=== PATIENT | female | born 1990 | race Caucasian/White ===

== ENCOUNTER 2020-01-28 19:00 | Inpatient (IN) | payer BC ==
[2020-01-28] MEDS ORDERED: Ondansetron 4 MG/2 ML SDV IVPUSH PRN (19:11)
[2020-01-28] MEDS ORDERED: Sodium Chloride 0.9% 10 ML Syringe FLUSH PRN (19:11)
[2020-01-28] MEDS ORDERED: Nalbuphine 10 MG/ML Syringe IVPUSH PRN (19:11)
[2020-01-28] MEDS ORDERED: Oxytocin/Lactated Ringers 10 UNIT/1,000 ML BAG IV SCH (19:15)
[2020-01-28] MEDS ORDERED: Misoprostol 25 MCG (1/4 of 100 MCG) Tab VAG ONE (20:00)
[2020-01-28] MEDS ORDERED: Misoprostol 200 MCG Tab VAG ONE (20:00)
--- NOTE | 2020-01-28 20:18 | PCM.LDHP ---
<Suni Bhakta - Last Filed: 01/28/20 20:04> L&D History of Present Illness - General Date of Service: 01/28/20 Admit Problem/Dx: Patient Status Order with Admit Dx/Problem 01/28/20 19:12 Patient Status [ADT] Routine Admission Diagnosis/Problem Admission Diagnosis/Problem Source of Information: Patient History Limitations: Reports: No Limitations - History of Present Illness Introduction:: Blanka Gomes is a 29-year-old female at 39 weeks and 6 days gestational age who presents to labor and delivery for elective induction of labor. JENY is 01/29/2020. Present Illness Comments:: Blanka Gomes is a 29-year-old female at 39 weeks and 6 days gestational age who presents to labor and delivery for elective induction of labor. JENY is 01/29/2020. The procedure, risks, and benefits were discussed with the patient and they agreed to proceed. OBGYN History: 29-year-old . JENY 01/29/2020, LMP 04/18/2019, which was confirmed by ultrasound performed on 06/24/2019. She was not on control at the time of conception. Menarche at age 14, cycles are every 30 days and are regular. History of abnormal pap with colposcopy in 2006; follow-up was appropriate and she has had normal paps since. History of chlamydia infection, which was treated appropriately; her chlamydia screening during the first trimester was negative. Past OB History: None Course: First visit on 07/27/2019 at 13 weeks and 3 days gestational age. She was seen on a regular basis throughout . She started her at 172 pounds and most recently weighed 188 pounds for a total weight gain during of 16 pounds. Vital signs remained stable throughout course and fundal heights were appropriate. TDAP was given on 11/07/2019. She plans to have an epidural. She plans to breastfeed. Group B strep negative. First Trimester Labs (07/27/2019): Blood Type: O positive Antibody screen: Negative Hemoglobin: 12.3 g/dl Hematocrit: 35.4% Platelets: 181 10*3/uL Rubella immune RPR nonreactive Hepatitis B surface antigen: negative HIV: negative Chlamydia and gonorrhea: negative Second Trimester Labs (11/07/2019): Hemoglobin: 11.4 g/dl Hematocrit: 35.3% Platelets: 171 10*3/uL Diabetes screen: normal Past Medical History - Past Health History Medical/Surgical History: Denies Medical/Surgical History Social & Family History - Family History Family Medical History: Noncontributory - Tobacco Use Smoking Status *Q: Never Smoker - Alcohol Use Alcohol Use History: No - Recreational Drug Use Recreational Drug Use: No H&P Review of Systems - Review of Systems: Review Of Systems: See Below General: Reports: No Symptoms HEENT: Reports: No Symptoms Pulmonary: Reports: No Symptoms Cardiovascular: Reports: No Symptoms Gastrointestinal: Reports: No Symptoms Genitourinary: Reports: No Symptoms Musculoskeletal: Reports: No Symptoms Skin: Reports: No Symptoms Psychiatric: Reports: No Symptoms Neurological: Reports: No Symptoms Hematologic/Lymphatic: Reports: No Symptoms Immunologic: Reports: No Symptoms L&D Exam - Exam Exam: See Below - Exam General: Alert, Oriented HEENT: Conjunctiva Clear, EOMI, Hearing Intact, Mucosa Moist & [place], Normal Nasal Septum, Posterior Pharynx Clear, Pupils Equal, Pupils Reactive Neck: Supple, Trachea Midline Lungs: Clear to Auscultation, Normal Respiratory Effort Cardiovascular: Regular Rate, Regular Rhythm, Normal S1, Normal S2 GI/Abdominal Exam: Normal Bowel Sounds Rectal Exam: Deferred Genitourinary: Normal external exam Back Exam: Normal Inspection, Full Range of Motion, Other (No CVA tenderness) Extremities: Normal Inspection, Normal Range of Motion, Non-Tender, No Pedal Edema, Normal Capillary Refill Skin: Warm, Dry, Intact Neurological: Cranial Nerves Intact, Reflexes Equal Bilateral DTR: 2+: Bicep (L), Bicep (R), Patella (L), Patella (R) Psychiatric: Alert, Normal Affect, Normal Mood - Patient Data Lab Results Last 24 hrs: Laboratory Results - last 24 hr 01/28/20 Range/Units 19:25 WBC 9.33 (3.98-10.04) K/mm3 RBC 3.93 L (3.98-5.22) M/mm3 Hgb 12.5 (11.2-15.7) gm/dl Hct 37.4 (34.1-44.9) % MCV 95.2 H (79.4-94.8) fl MCH 31.8 (25.6-32.2) pg MCHC 33.4 (32.2-35.5) g/dl RDW Std Deviation 47.8 H (36.4-46.3) fL Plt Count 148 L (182-369) K/mm3 MPV 11.9 (9.4-12.3) fl Neut % (Auto) 71.5 H (34.0-71.1) % Lymph % (Auto) 20.8 (19.3-51.7) % [place] % (Auto) 6.6 (4.7-12.5) % Eos % (Auto) 0.8 (0.7-5.8) Baso % (Auto) 0.1 (0.1-1.2) % Neut # (Auto) 6.67 H (1.56-6.13) K/mm3 Lymph # (Auto) 1.94 (1.18-3.74) K/mm3 [place] # (Auto) 0.62 H (0.24-0.36) K/mm3 Eos # (Auto) 0.07 (0.04-0.36) K/mm3 Baso # (Auto) 0.01 (0.01-0.08) K/mm3 Result Diagrams: 01/28/20 19:25 Orders Last 24hrs: Active Orders 24 hr Category Date Time Status Patient Status [ADT] Routine ADT 01/28/20 19:12 Active Activity as Tolerated [RC] PFP Care 01/28/20 19:11 Active Communication Order [RC] ASDIRECTED Care 01/28/20 19:11 Active Heart Tones [RC] ASDIRECTED Care 01/28/20 19:12 Active Non Stress Test [RC] PER UNIT ROUTINE Care 01/28/20 19:11 Active Notify Provider [RC] PFP Care 01/28/20 19:11 Active Notify Provider [RC] PRN Care 01/28/20 19:11 Active Peripheral IV Care [RC] . DIRECTED Care 01/28/20 19:12 Active Vital Signs [RC] PER UNIT ROUTINE Care 01/28/20 19:11 Active Regular Diet [DIET] Diet 01/28/20 Breakfast Active CORONAVIRUS COVID-19 PCR PHL Stat Lab 01/28/20 19:15 Ordered RAPID PLASMA REAGIN,RPR [CHEM] Routine Lab 01/28/20 19:25 Received TYPE AND SCREEN [BBK] Stat Lab 01/28/20 19:25 Received Lactated Ringers [Ringers, Lactated] 1,000 ml Med 01/28/20 19:15 Active IV ASDIRECTED Nalbuphine [Nubain] Med 01/28/20 19:11 Active 10 mg IVPUSH Q2H PRN Ondansetron [Zofran] Med 01/28/20 19:11 Active 4 mg IVPUSH Q4H PRN Oxytocin/Lactated Ringers [Pitocin in LR 10 Units/1,000 Med 01/28/20 19:15 Active ML] 10 unit in 1,000 ml IV .CONTINUOUS Oxytocin/Lactated Ringers [Pitocin in LR 10 Units/1,000 Med 01/28/20 19:15 Active ML] 10 unit in 1,000 ml IV TITRATE Sodium Chloride 0.9% [Saline Flush] Med 01/28/20 19:11 Active 10 ml FLUSH ASDIRECTED PRN Electronic Heart Tones Ext w TOCO [WOMSER] Oth 01/28/20 19:11 Ordered Routine Electronic Heart Tones Internal [WOMSER] Per Unit Ot 01/28/20 19:11 Ordered Routine Peripheral IV Insertion Adult [OM.PC] Routine Oth 01/28/20 19:11 Ordered Resuscitation Status Routine Resus Stat 01/28/20 19:11 Ordered Medication Orders Oxytocin/Lactated Ringer's (Pitocin In Lr 10 Units/1,000 Ml) 10 unit in 1,000 mls @ 12 mls/hr IV TITRATE RAN; Protocol Oxytocin/Lactated Ringer's (Pitocin In Lr 10 Units/1,000 Ml) 10 unit in 1,000 mls @ 500 mls/hr IV .CONTINUOUS RAN Lactated Ringer's (Ringers, Lactated) 1,000 mls @ 100 mls/hr IV ASDIRECTED RAN Nalbuphine HCl (Nubain) 10 mg IVPUSH Q2H PRN PRN Reason: Pain Ondansetron HCl (Zofran) 4 mg IVPUSH Q4H PRN PRN Reason: Nausea/Vomiting Sodium Chloride (Saline Flush) 10 ml FLUSH ASDIRECTED PRN PRN Reason: Keep Vein Open Assessment/Plan Comment:: Blanka Gomes is a 29-year-old female at 39 weeks and 6 days gestational age who presents to labor and delivery for elective induction of labor. JENY is 01/29/2020. We will begin with Cytotech to be inserted vaginally throughout the night. We will then plan to start Pitocin tomorrow morning and artificially rupture membranes if indicated. She and her are agreeable to this plan. She plans to have an epidural. She plans to breastfeed. Routine labor care. [place] [place] 01/28/20202021 HRS <Adria Grijalva - Last Filed: 01/28/20 23:12> L&D History of Present Illness - General Admit Problem/Dx: Patient Status Order with Admit Dx/Problem 01/28/20 19:12 Patient Status [ADT] Routine Admission Diagnosis/Problem Admission Diagnosis/Problem L&D Exam - Vital Signs Vital Signs: Last Vital Signs Temp 98.0 F 01/28/20 19:11 Pulse 88 01/28/20 19:11 Resp 16 01/28/20 19:11 BP 131/89 01/28/20 19:11 Pulse Ox 100 01/28/20 19:11 - Patient Data Lab Results Last 24 hrs: Laboratory Results - last 24 hr 01/28/20 01/28/20 01/28/20 Range/Units 19:25 19:25 19:50 WBC 9.33 (3.98-10.04) K/mm3 RBC 3.93 L (3.98-5.22) M/mm3 Hgb 12.5 (11.2-15.7) gm/dl Hct 37.4 (34.1-44.9) % MCV 95.2 H (79.4-94.8) fl MCH 31.8 (25.6-32.2) pg MCHC 33.4 (32.2-35.5) g/dl RDW Std Deviation 47.8 H (36.4-46.3) fL Plt Count 148 L (182-369) K/mm3 MPV 11.9 (9.4-12.3) fl Neut % (Auto) 71.5 H (34.0-71.1) % Lymph % (Auto) 20.8 (19.3-51.7) % [place] % (Auto) 6.6 (4.7-12.5) % Eos % (Auto) 0.8 (0.7-5.8) Baso % (Auto) 0.1 (0.1-1.2) % Neut # (Auto) 6.67 H (1.56-6.13) K/mm3 Lymph # (Auto) 1.94 (1.18-3.74) K/mm3 [place] # (Auto) 0.62 H (0.24-0.36) K/mm3 Eos # (Auto) 0.07 (0.04-0.36) K/mm3 Baso # (Auto) 0.01 (0.01-0.08) K/mm3 RPR Non-reactive (NONREACTIVE) COVID-19 ([facility]) Negative (NEGATIVE) Result Diagrams: 01/28/20 19:25 - Problem List (1) 39 weeks gestation of SNOMED Code(s): 25597524 ICD Code: Z3A.39 - 39 WEEKS GESTATION OF Status: Acute Current Visit: Yes Problem List Initiated/Reviewed/Updated: No Orders Last 24hrs: Active Orders 24 hr Category Date Time Status Patient Status [ADT] Routine ADT 01/28/20 19:12 Active Activity as Tolerated [RC] PFP Care 01/28/20 19:11 Active Communication Order [RC] ASDIRECTED Care 01/28/20 19:11 Active Communication Order [RC] ASDIRECTED Care 01/28/20 20:33 Active Cooling Warming Measures [RC] ASDIRECTED Care 01/28/20 20:33 Active Heart Tones [RC] ASDIRECTED Care 01/28/20 19:12 Active Non Stress Test [RC] PER UNIT ROUTINE Care 01/28/20 19:11 Active Notify Provider [RC] ASDIRECTED Care 01/28/20 20:33 Active Notify Provider [RC] ASDIRECTED Care 01/28/20 20:33 Active Notify Provider [RC] PFP Care 01/28/20 19:11 Active Notify Provider [RC] PRN Care 01/28/20 19:11 Active Oxygen Therapy [RC] ASDIRECTED Care 01/28/20 20:33 Active Peripheral IV Care [RC] . DIRECTED Care 01/28/20 19:12 Active Pulse Oximetry [RC] ASDIRECTED Care 01/28/20 20:33 Active Vital Signs [RC] PER UNIT ROUTINE Care 01/28/20 19:11 Active Regular Diet [DIET] Diet 01/28/20 Breakfast Active TYPE AND SCREEN [BBK] Stat Lab 01/28/20 19:25 Received Bupivacaine/fentaNYL/NS [fentaNYL/Bupivacaine/NS 2 MCG- Med 01/28/20 20:33 Active 0.125% 100 ML] 100 ml EPIDUR ASDIRECTED PRN Lactated Ringers [Ringers, Lactated] 1,000 ml Med 01/28/20 19:15 Active IV ASDIRECTED Nalbuphine [Nubain] Med 01/28/20 19:11 Active 10 mg IVPUSH Q2H PRN Ondansetron [Zofran] Med 01/28/20 19:11 Active 4 mg IVPUSH Q4H PRN Oxytocin/Lactated Ringers [Pitocin in LR 10 Units/1,000 Med 01/28/20 19:15 Active ML] 10 unit in 1,000 ml IV .CONTINUOUS Oxytocin/Lactated Ringers [Pitocin in LR 10 Units/1,000 Med 01/28/20 19:15 Active ML] 10 unit in 1,000 ml IV TITRATE Sodium Chloride 0.9% [Saline Flush] Med 01/28/20 19:11 Active 10 ml FLUSH ASDIRECTED PRN diphenhydrAMINE [Benadryl] Med 01/28/20 20:33 Active 25 mg IVPUSH Q6H PRN ePHEDrine [ePHEDrine sulfate] Med 01/28/20 20:33 Active 5 mg IVPUSH ASDIRECTED PRN fentaNYL [Sublimaze] Med 01/28/20 20:33 Active 100 mcg EPIDUR Q3H PRN Electronic Heart Tones Ext w TOCO [WOMSER] Oth 01/28/20 19:11 Ordered Routine Electronic Heart Tones Internal [WOMSER] Per Unit Oth 01/28/20 19:11 Ordered Routine Peripheral IV Insertion Adult [OM.PC] Routine Oth 01/28/20 19:11 Ordered Resuscitation Status Routine Resus Stat 01/28/20 19:11 Ordered Medication Orders Diphenhydramine HCl (Benadryl) 25 mg IVPUSH Q6H PRN PRN Reason: pruritis Ephedrine Sulfate (Ephedrine Sulfate) 5 mg IVPUSH ASDIRECTED PRN PRN Reason: Hypotension Fentanyl (Sublimaze) 100 mcg EPIDUR Q3H PRN PRN Reason: Pain Fentanyl/Bupivacaine HCl (Fentanyl/Bupivacaine/Ns 2 Mcg-0.125% 100 Ml) 100 ml EPIDUR ASDIRECTED PRN PRN Reason: Pain Oxytocin/Lactated Ringer's (Pitocin In Lr 10 Units/1,000 Ml) 10 unit in 1,000 mls @ 12 mls/hr IV TITRATE RAN; Protocol Oxytocin/Lactated Ringer's (Pitocin In Lr 10 Units/1,000 Ml) 10 unit in 1,000 mls @ 500 mls/hr IV .CONTINUOUS RAN Lactated Ringer's (Ringers, Lactated) 1,000 mls @ 100 mls/hr IV ASDIRECTED RAN Nalbuphine HCl (Nubain) 10 mg IVPUSH Q2H PRN PRN Reason: Pain Ondansetron HCl (Zofran) 4 mg IVPUSH Q4H PRN PRN Reason: Nausea/Vomiting Sodium Chloride (Saline Flush) 10 ml FLUSH ASDIRECTED PRN PRN Reason: Keep Vein Open Assessment/Plan Comment:: Patient seen and examined by me and discussed with student.
[2020-01-28] MEDS ORDERED: diphenhydrAMINE 50 MG/ML SDV IVPUSH PRN (20:33)
[2020-01-28] MEDS ORDERED: Bupivacaine/fentaNYL/NS 100 ML Bag EPIDUR PRN (20:33)
[2020-01-28] MEDS ORDERED: fentaNYL 100 MCG/2 ML SDV EPIDUR PRN (20:33)
[2020-01-28] MEDS ORDERED: ePHEDrine 50 MG/ML SDV IVPUSH PRN (20:33)
--- NOTE | 2020-01-28 23:42 | PCM.SN.2 ---
- Free Text/Narrative Note: Doing some contractions after the first Cytotec placed at approximately 2030 hrs. Repeat Cytotec at approximately 00 30 hours and again at 0430 hrs. and then at 0800 hrs. begin Pitocin augmentation.
[2020-01-29] MEDS ORDERED: Bupivacaine 0.25% 10 ML SDV ONE
[2020-01-29] MEDS ORDERED: ePHEDrine 50 MG/ML SDV ONE
[2020-01-29] MEDS ORDERED: Misoprostol 25 MCG (1/4 of 100 MCG) Tab VAG SCH ×2 (04:00)
[2020-01-29] MEDS: Lactated Ringers 1,000 ML IV SCH ×4 (04:13→14:59)
[2020-01-29] MEDS: Oxytocin/Lactated Ringers 10 UNIT/1,000 ML BAG IV SCH ×3 (04:14→18:59)
--- NOTE | 2020-01-29 10:17 | PCM.SN.2 ---
- Free Text/Narrative Note: Amniotomy at 1015. Clear fluid. Cervix 2 cm, 80%, soft, posterior, vertex 0 station.Cat I FHR.
--- NOTE | 2020-01-29 12:00 | PCM.PREANE ---
Preanesthetic Assessment - Procedure Proposed Procedure: Epidural - Anesthesia/Transfusion/Family Hx Anesthesia History: Prior Anesthesia Without Reaction Family History of Anesthesia Reaction: No Transfusion History: No Prior Transfusion(s) - Review of Systems General: Fatigue Pulmonary: No Symptoms Cardiovascular: No Symptoms Gastrointestinal: Abdominal Pain (labor) Neurological: No Symptoms Other: Reports: None - Physical Assessment Vital Signs: Last Vital Signs Temp 36.7 C 01/28/20 19:11 Pulse 88 01/28/20 19:11 Resp 16 01/28/20 19:11 BP 131/89 01/28/20 19:11 Pulse Ox 100 01/28/20 19:11 Height: 1.65 m Weight: 85.275 kg ASA Class: 2 Mental Status: Alert & Oriented x3 Airway Class: Mallampati = 1 Dentition: Reports: Normal Dentition Thyro-Mental Finger Breadths: 3 Mouth Opening Finger Breadths: 3 ROM/Head Extension: Full Lungs: Clear to Auscultation, Normal Respiratory Effort Cardiovascular: Regular Rate, Regular Rhythm - Lab Values: Laboratory Last Values WBC 9.33 K/mm3 (3.98-10.04) 01/28/20 19:25 RBC 3.93 M/mm3 (3.98-5.22) L 01/28/20 19:25 Hgb 12.5 gm/dl (11.2-15.7) 01/28/20 19:25 Hct 37.4 % (34.1-44.9) 01/28/20 19:25 MCV 95.2 fl (79.4-94.8) H 01/28/20 19:25 MCH 31.8 pg (25.6-32.2) 01/28/20 19:25 MCHC 33.4 g/dl (32.2-35.5) 01/28/20 19:25 RDW Std Deviation 47.8 fL (36.4-46.3) H 01/28/20 19:25 Plt Count 148 K/mm3 (182-369) L 01/28/20 19:25 MPV 11.9 fl (9.4-12.3) 01/28/20 19:25 Neut % (Auto) 71.5 % (34.0-71.1) H 01/28/20 19:25 Lymph % (Auto) 20.8 % (19.3-51.7) 01/28/20 19:25 [place] % (Auto) 6.6 % (4.7-12.5) 01/28/20 19:25 Eos % (Auto) 0.8 (0.7-5.8) 01/28/20 19:25 Baso % (Auto) 0.1 % (0.1-1.2) 01/28/20 19:25 Neut # (Auto) 6.67 K/mm3 (1.56-6.13) H 01/28/20 19:25 Lymph # (Auto) 1.94 K/mm3 (1.18-3.74) 01/28/20 19:25 [place] # (Auto) 0.62 K/mm3 (0.24-0.36) H 01/28/20 19:25 Eos # (Auto) 0.07 K/mm3 (0.04-0.36) 01/28/20 19:25 Baso # (Auto) 0.01 K/mm3 (0.01-0.08) 01/28/20 19:25 RPR Non-reactive (NONREACTIVE) 01/28/20 19:25 COVID-19 ([facility]) Negative (NEGATIVE) 01/28/20 19:50 - Allergies Allergies/Adverse Reactions: Allergies Allergy/AdvReac Type Severity Reaction Status Date / Time No Known Allergies Allergy Verified 01/28/20 21:03 - Anesthesia Plan Pre-Op Medication Ordered: None - Acknowledgements Anesthesia Type Planned: Epidural Pt an Appropriate Candidate for the Planned Anesthesia: Yes Alternatives and Risks of Anesthesia Discussed w Pt/Guardian: Yes Pt/Guardian Understands and Agrees with Anesthesia Plan: Yes PreAnesthesia Questionnaire - Past Health History Medical/Surgical History: Denies Medical/Surgical History Gastrointestinal History: Reports: GERD [employer]IC [employer]ORDINATOR History: Reports: - Past Surgical History HEENT Surgical History: Reports: Oral Surgery - SUBSTANCE USE Smoking Status *Q: Never Smoker Second Hand Smoke Exposure: No Recreational Drug Use History: No - HOME MEDS Home Medications: Home Meds Omeprazole Magnesium [Prilosec Otc] 1 tab PO DAILY PRN 01/28/20 [History] Prenat 115/Iron Fum/Folic/Dss [ 19 Tablet] 1 tab PO DAILY 01/28/20 [History] - CURRENT (IN HOUSE) MEDS Current Meds: Current Medications Diphenhydramine HCl (Benadryl) 25 mg IVPUSH Q6H PRN PRN Reason: pruritis Ephedrine Sulfate (Ephedrine Sulfate) 5 mg IVPUSH ASDIRECTED PRN PRN Reason: Hypotension Fentanyl (Sublimaze) 100 mcg EPIDUR Q3H PRN PRN Reason: Pain Last Admin: 01/29/20 11:38 Dose: 100 mcg Documented by: Fentanyl/Bupivacaine HCl (Fentanyl/Bupivacaine/Ns 2 Mcg-0.125% 100 Ml) 100 ml EPIDUR ASDIRECTED PRN PRN Reason: Pain Last Admin: 01/29/20 11:40 Dose: 100 ml Documented by: Oxytocin/Lactated Ringer's (Pitocin In Lr 10 Units/1,000 Ml) 10 unit in 1,000 mls @ 12 mls/hr IV TITRATE RAN; Protocol Last Titration: 01/29/20 08:00 Dose: 16 munits/min, 96 mls/hr Documented by: Oxytocin/Lactated Ringer's (Pitocin In Lr 10 Units/1,000 Ml) 10 unit in 1,000 mls @ 500 mls/hr IV .CONTINUOUS RAN Lactated Ringer's (Ringers, Lactated) 1,000 mls @ 100 mls/hr IV ASDIRECTED RAN Last Admin: 01/29/20 11:41 Dose: 999 mls/hr Documented by: Nalbuphine HCl (Nubain) 10 mg IVPUSH Q2H PRN PRN Reason: Pain Last Admin: 01/29/20 10:19 Dose: 10 mg Documented by: Ondansetron HCl (Zofran) 4 mg IVPUSH Q4H PRN PRN Reason: Nausea/Vomiting Sodium Chloride (Saline Flush) 10 ml FLUSH ASDIRECTED PRN PRN Reason: Keep Vein Open Discontinued Medications Misoprostol (Cytotec) 50 mcg VAG ONETIME ONE Stop: 01/28/20 20:01 Misoprostol (Cytotec) 50 mcg VAG ONETIME ONE Stop: 01/28/20 20:01 Last Admin: 01/28/20 19:54 Dose: 50 mcg Documented by: Misoprostol (Cytotec) 50 mcg VAG Q4HR RAN Stop: 01/29/20 01:01 Last Admin: 01/29/20 00:10 Dose: 50 mcg Documented by: Misoprostol (Cytotec) 50 mcg VAG Q4H RAN Stop: 01/29/20 04:01 Last Admin: 01/29/20 04:18 Dose: Not Given Documented by:
[2020-01-29] MEDS ORDERED: Acetaminophen 325 MG Tab PO ONE (21:46)
[2020-01-29] MEDS ORDERED: Lidocaine 1% 50 ML MDV ONE (22:59)
--- NOTE | 2020-01-29 23:26 | PCM.DEL ---
L & D Note - General Info Date of Service: 01/29/20 Mother's Due Date: 01/30/20 - Delivery Note Labor: Augmented by ARM, Augmented by Oxytocin Cervical Ripening Method: Misoprostil Delivery Outcome: Livebirth (Liveborn 01/29/2020 254 hours vacuum application x1 for 15 seconds in the green weight 3610 g / 7 pounds 15.3 ounces 7/8 no nuchal cord second-degree midline laceration SHANKAR) Delivery Method: Spontaneous Vaginal Delivery-Single Infant Delivery Mode: Vacuum Extraction Presentation: Right Occiput Anterior (SHANKAR) Nuchal Cord: None Prep: Povidone-Iodine (Betadine Anesthesia Type: Epidural Amniotic Fluid Description: Clear Episiotomy Type: None Laceration: 2nd Degree Suture type: Other (Monocryl) Suture size: 3-0 (2) Placenta: Intact, Spontaneous (To 58-hour examined intact discarded bi-valve placenta) Cord: 3 Vessels Estimated Blood Loss: 250 Resuscitation Needed: No [place]: Suctioned, Bulb Syringe, Stimulated, Warmed, Lolo Used, Warmer Used Provider: Adria Grijalva Score 1 min: 7 Score 5 min: 8 Induction Criteria - Mann Score Mann Score Dilation: 1-2 cm Mann Score Effacement: 0-30% Mann Score Infant's Station: -1 ,0 Mann Score Consistency: Soft Mann Score Cervix Position: Posterior Mann Score Total: 5 Mann Score Presenting Part: Reports: Cephalic - Induction Gestational Age >/= 39 wks: Yes Estimated Pelvis: Reports: Adequate Reassuring Monitoring Strip: Yes Absence of Tachy Systole: Yes - Augmentation Estimated Pelvis: Reports: Adequate Weight Estimated:: Reports: AGA Reassuring Monitoring Strip: Yes Absence of Tachy Systole: Yes Vacuum Extractor Progress Note - Alternative Labor Strategies Considered Alternative Labor Strategies Considered:: Reports: No Strategies Considered:: Reports: Contraction Intensity Adequate, Position Changes Used to Facilitate Rotation & Descent, Empty Bladder, Rest Indications Considered:: Reports: Yes Indications:: Reports: Shortening of 2nd Stage for Maternal Benefit Time Out:: Reports: Yes - Patient Prepared Patient Prepared:: Reports: Yes Informed Consent:: Reports: Verbal Risks: Reports: Yes Risks Include:: Reports: Laceration, Shoulder Dystocia, Maternal Injury, Other Anesthesia/Analgesia Adequate:: Reports: Yes - Probability of Success High Probability of Success:: Reports: Yes Weight Estimated:: Reports: AGA Patient Diabetic:: Reports: No Pelvis Adequate:: Reports: Yes Asynclitic:: Reports: No - Application Time Maximum Application Time & Number of Pop-Offs Predetermined:: Reports: Yes Maximum Pressure Maintained in Green Zone (cm Hg):: 600 Total Application Time (min): *max=20min: 1 (15 sec) Number of Times Cup Disengaged:: 0 Type of Vacuum Used:: Reports: Cup: Mushroom type Vacuum Extraction: Successful (1 Pull for 15 seconds in the green.) - General Info Date of Service: 01/29/20 Functional Status: Reports: Pain Controlled - Review of Systems General: Reports: No Symptoms HEENT: Reports: No Symptoms Pulmonary: Reports: No Symptoms Cardiovascular: Reports: No Symptoms Gastrointestinal: Reports: No Symptoms Genitourinary: Reports: No Symptoms Musculoskeletal: Reports: No Symptoms Skin: Reports: No Symptoms Neurological: Reports: No Symptoms Psychiatric: Reports: No Symptoms - Patient Data Vitals - Most Recent: Last Vital Signs Temp 98.0 F 01/28/20 19:11 Pulse 88 01/28/20 19:11 Resp 16 01/28/20 19:11 BP 131/89 01/28/20 19:11 Pulse Ox 100 01/28/20 19:11 Weight - Most Recent: 188 lb I&O - Last 24 Hours: Intake & Output 01/29/20 01/29/20 01/30/20 14:59 22:59 06:59 Intake Total 120 Balance 120 Lab Results Last 24 Hours: Laboratory Results - last 24 hr 01/28/20 Range/Units 19:25 Blood Type O POSITIVE Gel Antibody Screen Negative Med Orders - Current: Current Medications Diphenhydramine HCl (Benadryl) 25 mg IVPUSH Q6H PRN PRN Reason: pruritis Ephedrine Sulfate (Ephedrine Sulfate) 5 mg IVPUSH ASDIRECTED PRN PRN Reason: Hypotension Fentanyl (Sublimaze) 100 mcg EPIDUR Q3H PRN PRN Reason: Pain Last Admin: 01/29/20 11:38 Dose: 100 mcg Documented by: Fentanyl/Bupivacaine HCl (Fentanyl/Bupivacaine/Ns 2 Mcg-0.125% 100 Ml) 100 ml E PIDUR ASDIRECTED PRN PRN Reason: Pain Last Admin: 01/29/20 11:40 Dose: 100 ml Documented by: Oxytocin/Lactated Ringer's (Pitocin In Lr 10 Units/1,000 Ml) 10 unit in 1,000 mls @ 12 mls/hr IV TITRATE RAN; Protocol Last Admin: 01/29/20 18:59 Dose: 10 munits/min, 60 mls/hr Documented by: Oxytocin/Lactated Ringer's (Pitocin In Lr 10 Units/1,000 Ml) 10 unit in 1,000 mls @ 500 mls/hr IV .CONTINUOUS RAN Lactated Ringer's (Ringers, Lactated) 1,000 mls @ 100 mls/hr IV ASDIRECTED RAN Last Admin: 01/29/20 14:59 Dose: 100 mls/hr Documented by: Nalbuphine HCl (Nubain) 10 mg IVPUSH Q2H PRN PRN Reason: Pain Last Admin: 01/29/20 10:19 Dose: 10 mg Documented by: Ondansetron HCl (Zofran) 4 mg IVPUSH Q4H PRN PRN Reason: Nausea/Vomiting Sodium Chloride (Saline Flush) 10 ml FLUSH ASDIRECTED PRN PRN Reason: Keep Vein Open Discontinued Medications Acetaminophen (Tylenol) 975 mg PO NOW ONE Stop: 01/29/20 21:47 Lidocaine HCl (Xylocaine 1%) Confirm Administered Dose 50 ml .ROUTE .STK-MED ONE Stop: 01/29/20 23:00 Misoprostol (Cytotec) 50 mcg VAG ONETIME ONE Stop: 01/28/20 20:01 Misoprostol (Cytotec) 50 mcg VAG ONETIME ONE Stop: 01/28/20 20:01 Last Admin: 01/28/20 19:54 Dose: 50 mcg Documented by: Misoprostol (Cytotec) 50 mcg VAG Q4HR RAN Stop: 01/29/20 01:01 Last Admin: 01/29/20 00:10 Dose: 50 mcg Documented by: Misoprostol (Cytotec) 50 mcg VAG Q4H RAN Stop: 01/29/20 04:01 Last Admin: 01/29/20 04:18 Dose: Not Given Documented by: - Exam General: Alert, Oriented HEENT: Pupils Equal, Mucous Membr. Moist/[place] Neck: Supple Lungs: Clear to Auscultation, Normal Respiratory Effort Cardiovascular: Regular Rate, Regular Rhythm GI/Abdominal Exam: Normal Bowel Sounds (Female) Exam: Normal External Exam Extremities: Normal Inspection, Non-Tender, No Pedal Edema, Normal Capillary Refill Skin: Warm, Dry, Intact Psy/Mental Status: Alert, Normal Affect, Normal Mood - Problem List & Annotations (1) 39 weeks gestation of SNOMED Code(s): 46268380 Code(s): Z3A.39 - 39 WEEKS GESTATION OF Status: Acute Current Visit: Yes (2) Normal delivery at term SNOMED Code(s): 81386652 Code(s): O80 - ENCOUNTER FOR FULL-TERM UNCOMPLICATED DELIVERY Status: Acute Current Visit: Yes (3) Vacuum extraction, delivered, current hospitalization SNOMED Code(s): 271623033 Code(s): O66.5 - ATTEMPTED APPLICATION OF VACUUM EXTRACTOR AND FORCEPS Status: Acute Current Visit: Yes (4) Second degree laceration of perineum, delivered, current hospitalization SNOMED Code(s): 288068068, 216968891 Code(s): O70.1 - SECOND DEGREE PERINEAL LACERATION DURING DELIVERY Status: Acute Current Visit: Yes - Problem List Review Problem List Initiated/Reviewed/Updated: No - My Orders Last 24 Hours: My Active Orders 01/29/20 13:22 Urinary Catheter Assessment [RC] ASDIRECTED 01/29/20 13:30 Love Catheter Insertion [Insert Urinary Catheter] [OM.PC] Q24H - Plan Plan:: Patient seen and examined by me and discussed with student.
[2020-01-29] MEDS: Ibuprofen 600 MG Tab PO PRN (23:30)
[2020-01-29] MEDS ORDERED: Witch Hazel Medicated Pads 40/Jar TOP PRN (23:53)
[2020-01-29] MEDS ORDERED: Docusate Sodium 100 MG Cap PO PRN (23:53)
[2020-01-30] MEDS: Acetaminophen 325 MG Tab PO PRN ×2 (02:10→06:11)
[2020-01-30] MEDS: Ibuprofen 600 MG Tab PO PRN ×3 (04:05→21:51)
--- NOTE | 2020-01-30 10:11 | PCM.SN.2 ---
- Free Text/Narrative Note: day 1 Afebrile, chest clear no abnormal sounds. Cardiovascular examination normal. Uterus involuting normally. No heavy vaginal bleeding. No leg cramping. Probably home tomorrow.
--- NOTE | 2020-01-31 07:36 | PCM.DCSUM1 ---
Discharge Summary - Hospital Course Free Text/Narrative:: [facility] L/D Delivery Note Patient Name: SHAHEED SALAZAR Date of : 88 Patient Status: Inpatient Attending Provider: Adria Grijalva Date: 01/29/20 23:21 Initialization Date: 01/29/20 23:21 L & D Note - General Info Date of Service: 01/29/20 Mother's Due Date: 01/30/20 - Delivery Note Labor: Augmented by ARM, Augmented by Oxytocin Cervical Ripening Method: Misoprostil Delivery Outcome: Livebirth (Liveborn 01/29/2020 254 hours vacuum application x1 for 15 seconds in the green weight 3610 g / 7 pounds 15.3 ounces 7/8 no nuchal cord second-degree midline laceration SHANKAR) Delivery Method: Spontaneous Vaginal Delivery-Single Infant Delivery Mode: Vacuum Extraction Presentation: Right Occiput Anterior (SHANKAR) Nuchal Cord: None Prep: Povidone-Iodine (Betadine Anesthesia Type: Epidural Amniotic Fluid Description: Clear Episiotomy Type: None Laceration: 2nd Degree Suture type: Other (Monocryl) Suture size: 3-0 (2) Placenta: Intact, Spontaneous (To 58-hour examined intact discarded bi-valve placenta) Cord: 3 Vessels Estimated Blood Loss: 250 Resuscitation Needed: No : Suctioned, Bulb Syringe, Stimulated, Warmed, Applegate Used, Warmer Used Provider: Adria Grijalva Score 1 min: 7 Score 5 min: 8 Induction Criteria - Mann Score Mann Score Dilation: 1-2 cm Mann Score Effacement: 0-30% Mann Score 's Station: -1 ,0 Mann Score Consistency: Soft Mann Score Cervix Position: Posterior Mann Score Total: 5 Mann Score Presenting Part: Reports: Cephalic - Induction Gestational Age >/= 39 wks: Yes Estimated Pelvis: Reports: Adequate Reassuring Monitoring Strip: Yes Absence of Tachy Systole: Yes - Augmentation Estimated Pelvis: Reports: Adequate Weight Estimated:: Reports: AGA Reassuring Monitoring Strip: Yes Absence of Tachy Systole: Yes Vacuum Extractor Progress Note - Alternative Labor Strategies Considered Alternative Labor Strategies Considered:: Reports: No Strategies Considered:: Reports: Contraction Intensity Adequate, Position Changes Used to Facilitate Rotation & Descent, Empty Bladder, Rest Indications Considered:: Reports: Yes Indications:: Reports: Shortening of 2nd Stage for Maternal Benefit Time Out:: Reports: Yes - Patient Prepared Patient Prepared:: Reports: Yes Informed Consent:: Reports: Verbal Risks: Reports: Yes Risks Include:: Reports: Laceration, Shoulder Dystocia, Maternal Injury, Other Anesthesia/Analgesia Adequate:: Reports: Yes - Probability of Success High Probability of Success:: Reports: Yes Weight Estimated:: Reports: AGA Patient Diabetic:: Reports: No Pelvis Adequate:: Reports: Yes Asynclitic:: Reports: No - Application Time Maximum Application Time & Number of Pop-Offs Predetermined:: Reports: Yes Maximum Pressure Maintained in Green Zone (cm Hg):: 600 Total Application Time (min): *max=20min: 1 (15 sec) Number of Times Cup Disengaged:: 0 Type of Vacuum Used:: Reports: Cup: Mushroom type Vacuum Extraction: Successful (1 Pull for 15 seconds in the green.) - General Info Date of Service: 01/29/20 Functional Status: Reports: Pain Controlled - Review of Systems General: Reports: No Symptoms HEENT: Reports: No Symptoms Pulmonary: Reports: No Symptoms Cardiovascular: Reports: No Symptoms Gastrointestinal: Reports: No Symptoms Genitourinary: Reports: No Symptoms Musculoskeletal: Reports: No Symptoms Skin: Reports: No Symptoms Neurological: Reports: No Symptoms Psychiatric: Reports: No Symptoms - Patient Data Vitals - Most Recent: Last Vital Signs Temp 98.0 F 01/28/20 19:11 Pulse 88 01/28/20 19:11 Resp 16 01/28/20 19:11 BP 131/89 01/28/20 19:11 Pulse Ox 100 01/28/20 19:11 Weight - Most Recent: 188 lb I&O - Last 24 Hours: Intake & Output 01/29/20 01/29/20 01/30/20 14:59 22:59 06:59 Intake Total 120 Balance 120 Lab Results Last 24 Hours: Laboratory Results - last 24 hr 01/28/20 Range/Units 19:25 Blood Type O POSITIVE Gel Antibody Screen Negative Med Orders - Current: Current Medications Diphenhydramine HCl (Benadryl) 25 mg IVPUSH Q6H PRN PRN Reason: pruritis Ephedrine Sulfate (Ephedrine Sulfate) 5 mg IVPUSH ASDIRECTED PRN PRN Reason: Hypotension Fentanyl (Sublimaze) 100 mcg EPIDUR Q3H PRN PRN Reason: Pain Last Admin: 01/29/20 11:38 Dose: 100 mcg Documented by: Fentanyl/Bupivacaine HCl (Fentanyl/Bupivacaine/Ns 2 Mcg-0.125% 100 Ml) 100 ml EPIDUR ASDIRECTED PRN PRN Reason: Pain Last Admin: 01/29/20 11:40 Dose: 100 ml Documented by: Oxytocin/Lactated Ringer's (Pitocin In Lr 10 Units/1,000 Ml) 10 unit in 1,000 mls @ 12 mls/hr IV TITRATE RAN; Protocol Last Admin: 01/29/20 18:59 Dose: 10 munits/min, 60 mls/hr Documented by: Oxytocin/Lactated Ringer's (Pitocin In Lr 10 Units/1,000 Ml) 10 unit in 1,000 mls @ 500 mls/hr IV .CONTINUOUS RAN Lactated Ringer's (Ringers, Lactated) 1,000 mls @ 100 mls/hr IV ASDIRECTED RAN Last Admin: 01/29/20 14:59 Dose: 100 mls/hr Documented by: Nalbuphine HCl (Nubain) 10 mg IVPUSH Q2H PRN PRN Reason: Pain Last Admin: 01/29/20 10:19 Dose: 10 mg Documented by: Ondansetron HCl (Zofran) 4 mg IVPUSH Q4H PRN PRN Reason: Nausea/Vomiting Sodium Chloride (Saline Flush) 10 ml FLUSH ASDIRECTED PRN PRN Reason: Keep Vein Open Discontinued Medications Acetaminophen (Tylenol) 975 mg PO NOW ONE Stop: 01/29/20 21:47 Lidocaine HCl (Xylocaine 1%) Confirm Administered Dose 50 ml .ROUTE .STK-MED ONE Stop: 01/29/20 23:00 Misoprostol (Cytotec) 50 mcg VAG ONETIME ONE Stop: 01/28/20 20:01 Misoprostol (Cytotec) 50 mcg VAG ONETIME ONE Stop: 01/28/20 20:01 Last Admin: 01/28/20 19:54 Dose: 50 mcg Documented by: Misoprostol (Cytotec) 50 mcg VAG Q4HR RAN Stop: 01/29/20 01:01 Last Admin: 01/29/20 00:10 Dose: 50 mcg Documented by: Misoprostol (Cytotec) 50 mcg VAG Q4H RAN Stop: 01/29/20 04:01 Last Admin: 01/29/20 04:18 Dose: Not Given Documented by: - Exam General: Alert, Oriented HEENT: Pupils Equal, Mucous Membr. Moist/Muniz Neck: Supple Lungs: Clear to Auscultation, Normal Respiratory Effort Cardiovascular: Regular Rate, Regular Rhythm GI/Abdominal Exam: Normal Bowel Sounds (Female) Exam: Normal External Exam Extremities: Normal Inspection, Non-Tender, No Pedal Edema, Normal Capillary Refill Skin: Warm, Dry, Intact Psy/Mental Status: Alert, Normal Affect, Normal Mood - Problem List & Annotations (1) 39 weeks gestation of SNOMED Code(s): 66560570 Code(s): Z3A.39 - 39 WEEKS GESTATION OF Status: Acute Current Visit: Yes (2) Normal delivery at term SNOMED Code(s): 23981850 Code(s): O80 - ENCOUNTER FOR FULL-TERM UNCOMPLICATED DELIVERY Status: Acute Current Visit: Yes (3) Vacuum extraction, delivered, current hospitalization SNOMED Code(s): 281724479 Code(s): O66.5 - ATTEMPTED APPLICATION OF VACUUM EXTRACTOR AND FORCEPS Status: Acute Current Visit: Yes (4) Second degree laceration of perineum, delivered, current hospitalization SNOMED Code(s): 247317106, 221826878 Code(s): O70.1 - SECOND DEGREE PERINEAL LACERATION DURING DELIVERY Status: Acute Current Visit: Yes - Problem List Review Problem List Initiated/Reviewed/Updated: No - My Orders Last 24 Hours: My Active Orders 01/29/20 13:22 Urinary Catheter Assessment [RC] ASDIRECTED 01/29/20 13:30 Love Catheter Insertion [Insert Urinary Catheter] [OM.PC] Q24H - Plan Plan:: Patient seen and examined by me and discussed with student. HPI Initial Comments: [facility] L/D Delivery Note Patient Name: SHAHEED SALAZAR Date of : 88 Patient Status: Inpatient Attending Provider: Adria Grijalva Date: 01/29/20 23:21 Initialization Date: 01/29/20 23:21 L & D Note - General Info Date of Service: 01/29/20 Mother's Due Date: 01/30/20 - Delivery Note Labor: Augmented by ARM, Augmented by Oxytocin Cervical Ripening Method: Misoprostil Delivery Outcome: Livebirth (Liveborn 01/29/2020 254 hours vacuum application x1 for 15 seconds in the green weight 3610 g / 7 pounds 15.3 ounces 7/8 no nuchal cord second-degree midline laceration SHANKAR) Delivery Method: Spontaneous Vaginal Delivery-Single Infant Delivery Mode: Vacuum Extraction Presentation: Right Occiput Anterior (SHANKAR) Nuchal Cord: None Prep: Povidone-Iodine (Betadine Anesthesia Type: Epidural Amniotic Fluid Description: Clear Episiotomy Type: None Laceration: 2nd Degree Suture type: Other (Monocryl) Suture size: 3-0 (2) Placenta: Intact, Spontaneous (To 58-hour examined intact discarded bi-valve placenta) Cord: 3 Vessels Estimated Blood Loss: 250 Resuscitation Needed: No : Suctioned, Bulb Syringe, Stimulated, Warmed, Applegate Used, Warmer Used Provider: Adria Grijalva Score 1 min: 7 Score 5 min: 8 Induction Criteria - Mann Score Mann Score Dilation: 1-2 cm Mann Score Effacement: 0-30% Mann Score Infant's Station: -1 ,0 Mann Score Consistency: Soft Mann Score Cervix Position: Posterior Mann Score Total: 5 Mann Score Presenting Part: Reports: Cephalic - Induction Gestational Age >/= 39 wks: Yes Estimated Pelvis: Reports: Adequate Reassuring Monitoring Strip: Yes Absence of Tachy Systole: Yes - Augmentation Estimated Pelvis: Reports: Adequate Weight Estimated:: Reports: AGA Reassuring Monitoring Strip: Yes Absence of Tachy Systole: Yes Vacuum Extractor Progress Note - Alternative Labor Strategies Considered Alternative Labor Strategies Considered:: Reports: No Strategies Considered:: Reports: Contraction Intensity Adequate, Position Changes Used to Facilitate Rotation & Descent, Empty Bladder, Rest Indications Considered:: Reports: Yes Indications:: Reports: Shortening of 2nd Stage for Maternal Benefit Time Out:: Reports: Yes - Patient Prepared Patient Prepared:: Reports: Yes Informed Consent:: Reports: Verbal Risks: Reports: Yes Risks Include:: Reports: Laceration, Shoulder Dystocia, Maternal Injury, Other Anesthesia/Analgesia Adequate:: Reports: Yes - Probability of Success High Probability of Success:: Reports: Yes Weight Estimated:: Reports: AGA Patient Diabetic:: Reports: No Pelvis Adequate:: Reports: Yes Asynclitic:: Reports: No - Application Time Maximum Application Time & Number of Pop-Offs Predetermined:: Reports: Yes Maximum Pressure Maintained in Green Zone (cm Hg):: 600 Total Application Time (min): *max=20min: 1 (15 sec) Number of Times Cup Disengaged:: 0 Type of Vacuum Used:: Reports: Cup: Mushroom type Vacuum Extraction: Successful (1 Pull for 15 seconds in the green.) - General Info Date of Service: 01/29/20 Functional Status: Reports: Pain Controlled - Review of Systems General: Reports: No Symptoms HEENT: Reports: No Symptoms Pulmonary: Reports: No Symptoms Cardiovascular: Reports: No Symptoms Gastrointestinal: Reports: No Symptoms Genitourinary: Reports: No Symptoms Musculoskeletal: Reports: No Symptoms Skin: Reports: No Symptoms Neurological: Reports: No Symptoms Psychiatric: Reports: No Symptoms - Patient Data Vitals - Most Recent: Last Vital Signs Temp 98.0 F 01/28/20 19:11 Pulse 88 01/28/20 19:11 Resp 16 01/28/20 19:11 BP 131/89 01/28/20 19:11 Pulse Ox 100 01/28/20 19:11 Weight - Most Recent: 188 lb I&O - Last 24 Hours: Intake & Output 01/29/20 01/29/20 01/30/20 14:59 22:59 06:59 Intake Total 120 Balance 120 Lab Results Last 24 Hours: Laboratory Results - last 24 hr 01/28/20 Range/Units 19:25 Blood Type O POSITIVE Gel Antibody Screen Negative Med Orders - Current: Current Medications Diphenhydramine HCl (Benadryl) 25 mg IVPUSH Q6H PRN PRN Reason: pruritis Ephedrine Sulfate (Ephedrine Sulfate) 5 mg IVPUSH ASDIRECTED PRN PRN Reason: Hypotension Fentanyl (Sublimaze) 100 mcg EPIDUR Q3H PRN PRN Reason: Pain Last Admin: 01/29/20 11:38 Dose: 100 mcg Documented by: Fentanyl/Bupivacaine HCl (Fentanyl/Bupivacaine/Ns 2 Mcg-0.125% 100 Ml) 100 ml EPIDUR ASDIRECTED PRN PRN Reason: Pain Last Admin: 01/29/20 11:40 Dose: 100 ml Documented by: Oxytocin/Lactated Ringer's (Pitocin In Lr 10 Units/1,000 Ml) 10 unit in 1,000 mls @ 12 mls/hr IV TITRATE RAN; Protocol Last Admin: 01/29/20 18:59 Dose: 10 munits/min, 60 mls/hr Documented by: Oxytocin/Lactated Ringer's (Pitocin In Lr 10 Units/1,000 Ml) 10 unit in 1,000 mls @ 500 mls/hr IV .CONTINUOUS RAN Lactated Ringer's (Ringers, Lactated) 1,000 mls @ 100 mls/hr IV ASDIRECTED RAN Last Admin: 01/29/20 14:59 Dose: 100 mls/hr Documented by: Nalbuphine HCl (Nubain) 10 mg IVPUSH Q2H PRN PRN Reason: Pain Last Admin: 01/29/20 10:19 Dose: 10 mg Documented by: Ondansetron HCl (Zofran) 4 mg IVPUSH Q4H PRN PRN Reason: Nausea/Vomiting Sodium Chloride (Saline Flush) 10 ml FLUSH ASDIRECTED PRN PRN Reason: Keep Vein Open Discontinued Medications Acetaminophen (Tylenol) 975 mg PO NOW ONE Stop: 01/29/20 21:47 Lidocaine HCl (Xylocaine 1%) Confirm Administered Dose 50 ml .ROUTE .STK-MED ONE Stop: 01/29/20 23:00 Misoprostol (Cytotec) 50 mcg VAG ONETIME ONE Stop: 01/28/20 20:01 Misoprostol (Cytotec) 50 mcg VAG ONETIME ONE Stop: 01/28/20 20:01 Last Admin: 01/28/20 19:54 Dose: 50 mcg Documented by: Misoprostol (Cytotec) 50 mcg VAG Q4HR RAN Stop: 01/29/20 01:01 Last Admin: 01/29/20 00:10 Dose: 50 mcg Documented by: Misoprostol (Cytotec) 50 mcg VAG Q4H RAN Stop: 01/29/20 04:01 Last Admin: 01/29/20 04:18 Dose: Not Given Documented by: - Exam General: Alert, Oriented HEENT: Pupils Equal, Mucous Membr. Moist/Muniz Neck: Supple Lungs: Clear to Auscultation, Normal Respiratory Effort Cardiovascular: Regular Rate, Regular Rhythm GI/Abdominal Exam: Normal Bowel Sounds (Female) Exam: Normal External Exam Extremities: Normal Inspection, Non-Tender, No Pedal Edema, Normal Capillary Refill Skin: Warm, Dry, Intact Psy/Mental Status: Alert, Normal Affect, Normal Mood - Problem List & Annotations (1) 39 weeks gestation of SNOMED Code(s): 77489878 Code(s): Z3A.39 - 39 WEEKS GESTATION OF Status: Acute Current Visit: Yes (2) Normal delivery at term SNOMED Code(s): 20641354 Code(s): O80 - ENCOUNTER FOR FULL-TERM UNCOMPLICATED DELIVERY Status: Acute Current Visit: Yes (3) Vacuum extraction, delivered, current hospitalization SNOMED Code(s): 743911663 Code(s): O66.5 - ATTEMPTED APPLICATION OF VACUUM EXTRACTOR AND FORCEPS Status: Acute Current Visit: Yes (4) Second degree laceration of perineum, delivered, current hospitalization SNOMED Code(s): 264658001, 819012186 Code(s): O70.1 - SECOND DEGREE PERINEAL LACERATION DURING DELIVERY Status: Acute Current Visit: Yes - Problem List Review Problem List Initiated/Reviewed/Updated: No - My Orders Last 24 Hours: My Active Orders 01/29/20 13:22 Urinary Catheter Assessment [RC] ASDIRECTED 01/29/20 13:30 Love Catheter Insertion [Insert Urinary Catheter] [OM.PC] Q24H - Plan Plan:: Patient seen and examined by me and discussed with student. Brief History: [facility] LIVE . L/D Delivery Note. Patient Name: SHAHEED SALAZAR [facility] Record Number: [id number]. Date of : 88Patient Status: Inpatient. Attending Provider: Adria Grijalva Number: [id number]. Date: 01/29/20 23:21Initialization Date: 01/29/20 23:21. L & D Note. - General Info. Date of Service: 01/29/20. Mother's Due Date: 01/30/20. - Delivery Note. Labor: Augmented by ARM, Augmented by Oxytocin. Cervical Ripening Method: Misoprostil. Delivery Outcome: Livebirth (Liveborn 01/29/2020 254 hours vacuum application x1 for 15 seconds in the green weight 3610 g / 7 pounds 15.3 ounces 7/8 no nuchal cord second-degree midline laceration SHANKAR). Infant Delivery Method: Spontaneous Vaginal Delivery-Single. Delivery Mode: Vacuum Extraction. Presentation: Right Occiput Anterior (SHANKAR). Nuchal Cord: None. Prep: Povidone-Iodine (Betadine. Anesthesia Type: Epidural. Amniotic Fluid Description: Clear. Episiotomy Type: None. Laceration: 2nd Degree. Suture type: Other (Monocryl). Suture size: 3- 0 (2). Placenta: Intact, Spontaneous (To 58-hour examined intact discarded bi-valve placenta). Cord: 3 Vessels. Estimated Blood Loss: 250. Resuscitation Needed: No. [place]: Suctioned, Bulb Syringe, Stimulated, Warmed, Applegate Used, Warmer Used. Provider: Adria Grijalva. Score 1 min: 7. Score 5 min: 8. Induction Criteria. - Mann Score. Mann Score Dilation: 1-2 cm. Mann Score Effacement: 0-30%. Mann Score Infant's Station: -1 ,0. Mann Score Consistency: Soft. Mann Score Cervix Position: Posterior. Mann Score Total: 5. Mann Score Presenting Part: Reports: Cephalic. - Induction. Gestational Age >/= 39 wks: Yes. Estimated Pelvis: Reports: Adequate. Reassuring Monitoring Strip: Yes. Absence of Tachy Systole: Yes. - Augmentation. Estimated Pelvis: Reports: Adequate. Weight Estimated:: Reports: AGA. Reassuring Monitoring Strip: Yes. Absence of Tachy Systole: Yes. Vacuum Extractor Progress Note. - Alternative Labor Strategies Considered. Alternative Labor Strategies Considered:: Reports: No. Strategies Considered:: Reports: Contraction Intensity Adequate, Position Changes Used to Facilitate Rotation & Descent, Empty Bladder, Rest. Indications Considered:: Reports: Yes. Indications:: Reports: Shortening of 2nd Stage for Maternal Benefit. Time Out:: Reports: Yes. - Patient Prepared. Patient Prepared:: Reports: Yes. Informed Consent:: Reports: Verbal. Risks: Reports: Yes. Risks Include:: Reports: Laceration, Shoulder Dystocia, Maternal Injury, Other. Anesthesia/Analgesia Adequate:: Reports: Yes. - Probability of Success. High Probability of Success:: Reports: Yes. Weight Estimated:: Reports: AGA. Patient Diabetic:: Reports: No. Pelvis Adequate:: Reports: Yes. Asynclitic:: Reports: No. - Application Time. Maximum Application Time & Number of Pop-Offs Predetermined:: Reports: Yes. Maximum Pressure Maintained in Green Zone (cm Hg):: 600. Total Application Time (min): *max=20min: 1 (15 sec). Number of Times Cup Disengaged:: 0. Type of Vacuum Used:: Reports: Cup: Mushroom type. Vacuum Extraction: Successful (1 Pull for 15 seconds in the green.). - General Info. Date of Service: 01/29/20. Functional Status: Reports: Pain Controlled. - Review of Systems. General: Reports: No Symptoms. HEENT: Reports: No Symptoms. Pulmonary: Reports: No Symptoms. Cardiovascular: Reports: No Symptoms. Gastrointestinal: Reports: No Symptoms. Genitourinary: Reports: No Symptoms. Musculoskeletal: Reports: No Symptoms. Skin: Reports: No Symptoms. Neurological: Reports: No Symptoms. Psychiatric: Reports: No Symptoms. - Patient Data. Vitals - Most Recent: Last Vital Signs. Temp 98.0 F 01/28/20 19:11. Pulse 88 01/28/20 19:11. Resp 16 01/28/20 19:11. BP 131/89 01/28/20 19:11. Pulse Ox 100 01/28/20 19:11. Weight - Most Recent: 188 lb. I&O - Last 24 Hours: Intake & Output. 01/28/2007/. 1 4:5922:[id number]:59. Intake [id number]. [id number]. Lab Results Last 24 Hours: Laboratory Results - last 24 hr. 01/28/20Range/Units. 19:25. Blood Type O POSITIVE. Gel Antibody Screen Negative. Med Orders - Current: Current Medications. Diphenhydramine HCl (Benadryl) 25 mg IVPUSH Q6H PRN. PRN Reason: pruritis. Ephedrine Sulfate (Ephedrine Sulfate) 5 mg IVPUSH ASDIRECTED PRN. PRN Reason: Hypotension. Fentanyl (Sublimaze) 100 mcg EPIDUR Q3H PRN. PRN Reason: Pain. Last Admin: 01/29/20 11:38 Dose: 100 mcg. Documented by: Fentanyl/Bupivacaine HCl (Fentanyl/Bupivacaine/Ns 2 Mcg-0.125% 100 Ml) 100 ml EPIDUR ASDIRECTED PRN. PRN Reason: Pain. Last Admin: 01/29/20 11:40 Dose: 100 ml. Documented by: Oxytocin/Lactated Ringer's (Pitocin In Lr 10 Units/1,000 Ml) 10 unit in 1,000 mls @ 12 mls/hr IV TITRATE RAN; Protocol. Last Admin: 01/29/20 18:59 Dose: 10 munits/min, 60 mls/hr. Documented by: Oxytocin/Lactated Ringer's (Pitocin In Lr 10 Units/1,000 Ml) 10 unit in 1,000 mls @ 500 mls/hr IV .CONTINUOUS RAN. Lactated Ringer's (Ringers, Lactated) 1,000 mls @ 100 mls/hr IV ASDIRECTED RAN. Last Admin: 01/29/20 14:59 Dose: 100 mls/hr. Documented by: Nalbuphine HCl (Nubain) 10 mg IVPUSH Q2H PRN. PRN Reason: Pain. Last Admin: 01/29/20 10:19 Dose: 10 mg. Documented by: Ondansetron HCl (Zofran) 4 mg IVPUSH Q4H PRN. PRN Reason: Nausea/Vomiting. Sodium Chloride (Saline Flush) 10 ml FLUSH ASDIRECTED PRN. PRN Reason: Keep Vein Open. Discontinued Medications. Acetaminophen (Tylenol) 975 mg PO NOW ONE. Stop: 01/29/20 21:47. Lidocaine HCl (Xylocaine 1%) Confirm Administered Dose 50 ml .ROUTE .STK-MED ONE. Stop: 01/29/20 23:00. Misoprostol (Cytotec) 50 mcg VAG ONETIME ONE. Stop: 01/28/20 20:01. Misoprostol (Cytotec) 50 mcg VAG ONETIME ONE. Stop: 01/28/20 20:01. Last Admin: 01/28/20 19:54 Dose: 50 mcg. Documented by: Misoprostol (Cytotec) 50 mcg VAG Q4HR RAN. Stop: 01/29/20 01:01. Last Admin: 01/29/20 00:10 Dose: 50 mcg. Documented by: Misoprostol (Cytotec) 50 mcg VAG Q4H RAN. Stop: 01/29/20 04:01. Last Admin: 01/29/20 04:18 Dose: Not Given. Documented by: - Exam. General: Alert, Oriented. HEENT: Pupils Equal, Mucous Membr. Moist/Muniz. Neck: Supple. Lungs: Clear to Auscultation, Normal Respiratory Effort. Cardiovascular: Regular Rate, Regular Rhythm. GI/Abdominal Exam: Normal Bowel Sounds. (Female) Exam: Normal External Exam. Extremities: Normal Inspection, Non-Tender, No Pedal Edema, Normal Capillary Refill. Skin: Warm, Dry, Intact. Psy/Mental Status: Alert, Normal Affect, Normal Mood. - Problem List & Annotations. (1) 39 weeks gestation of . SNOMED Code(s): 31457218. Code(s): Z3A.39 - 39 WEEKS GESTATION OF Status: Acute Current Visit: Yes. (2) Normal delivery at term. SNOMED Code(s): 18242672. Code(s): O80 - ENCOUNTER FOR FULL-TERM UNCOMPLICATED DELIVERY Status: Acute Current Visit: Yes. (3) Vacuum extraction, delivered, current hospitalization. SNOMED Code(s): 225592993. Code(s): O66.5 - ATTEMPTED APPLICATION OF VACUUM EXTRACTOR AND FORCEPS Status: Acute Current Visit: Yes. (4) Second degree laceration of perineum, delivered, current hospitalization. SNOMED Code(s): 045063936, 422263882. Code(s): O70.1 - SECOND DEGREE PERINEAL LACERATION DURING DELIVERY Status: Acute Current Visit: Yes. - Problem List Review. Problem List Initiated/Reviewed/Updated: No. - My Orders. Last 24 Hours: My Active Orders. 01/29/20 13:22. Urinary Catheter Assessment [RC] ASDIRECTED. 01/29/20 13:30. Love Catheter Insertion [Insert Urinary Catheter] [OM.PC] Q24H. - Plan. Plan:: Patient seen and examined by me and discussed with student. Diagnosis: Stroke: No - Discharge Data Discharge Date: 01/31/20 Discharge Disposition: Home, Self-Care 01 Condition: Good - Referral to Home Health Primary Care Physician: Adria Grijalva MD - Discharge Diagnosis/Problem(s) (1) 39 weeks gestation of SNOMED Code(s): 44471507 ICD Code: Z3A.39 - 39 WEEKS GESTATION OF Status: Acute Current Visit: Yes (2) Normal delivery at term SNOMED Code(s): 13920063 ICD Code: O80 - ENCOUNTER FOR FULL-TERM UNCOMPLICATED DELIVERY Status: Acute Current Visit: Yes (3) Vacuum extraction, delivered, current hospitalization SNOMED Code(s): 725727133 ICD Code: O66.5 - ATTEMPTED APPLICATION OF VACUUM EXTRACTOR AND FORCEPS Status: Acute Current Visit: Yes (4) Second degree laceration of perineum, delivered, current hospitalization SNOMED Code(s): 799589925, 988103362 ICD Code: O70.1 - SECOND DEGREE PERINEAL LACERATION DURING DELIVERY Status: Acute Current Visit: Yes - Patient Summary/Data Complications: None Consults: None Hospital Course: Uneventful - Patient Instructions Diet: Usual Diet as Tolerated Driving: Do Not Drive (48 hours) Showering/Bathing: May Shower Notify Provider of: Fever, Increased Pain, Swelling and Redness, Drainage, Nausea and/or Vomiting - Discharge Plan *PRESCRIPTION DRUG MONITORING PROGRAM REVIEWED*: Not Applicable *COPY OF PRESCRIPTION DRUG MONITORING REPORT IN PATIENT OSBALDO: Not Applicable Home Medications: Home Meds Prenat 115/Iron Fum/Folic/Dss [ 19 Tablet] 1 tab PO DAILY 01/28/20 [History] Acetaminophen [Tylenol] 650 mg PO Q6H PRN tablet 01/31/20 [Rx] Docusate Sodium [Colace] 100 mg PO BID PRN cap 01/31/20 [Rx] Ibuprofen [Motrin] 600 mg PO Q6H PRN tablet 01/31/20 [Rx] yolanda Holland [Tucks] 1 pad TOP ASDIRECTED PRN pad 01/31/20 [Rx] Referrals: Adria Grijalva MD [Primary Care Provider] - (Patient patient will call to make an appointment to see me on February 13) - Discharge Summary/Plan Comment DC Time >30 min.: No - Patient Data Vitals - Most Recent: Last Vital Signs Temp 98.1 F 01/31/20 03:17 Pulse 67 01/31/20 03:17 Resp 15 01/30/20 19:27 BP 114/64 01/31/20 03:17 Pulse Ox 98 01/31/20 03:17 Weight - Most Recent: 188 lb Med Orders - Current: Current Medications Acetaminophen (Tylenol) 650 mg PO Q4H PRN PRN Reason: mild pain or fever Last Admin: 01/30/20 06:11 Dose: 650 mg Documented by: Docusate Sodium (Colace) 100 mg PO BID PRN PRN Reason: Constipation Last Admin: 01/29/20 23:30 Dose: 100 mg Documented by: Ibuprofen (Motrin) 600 mg PO Q4H PRN PRN Reason: Mild pain or fever Last Admin: 01/30/20 21:51 Dose: 600 mg Documented by: Yolanda Holland ([facility]) 1 pad TOP ASDIRECTED PRN PRN Reason: Perineal Comfort Measure Last Admin: 01/30/20 01:00 Dose: 1 container Documented by: Discontinued Medications Acetaminophen (Tylenol) 975 mg PO NOW ONE Stop: 01/29/20 21:47 Last Admin: 01/29/20 21:50 Dose: 975 mg Documented by: Bupivacaine HCl (Sensorcaine-Mpf 0.25%) 10 ml .ROUTE .STK-MED ONE Stop: 01/29/20 00:01 Diphenhydramine HCl (Benadryl) 25 mg IVPUSH Q6H PRN PRN Reason: pruritis Ephedrine Sulfate (Ephedrine Sulfate) 5 mg IVPUSH ASDIRECTED PRN PRN Reason: Hypotension Ephedrine Sulfate (Ephedrine Sulfate) 50 mg .ROUTE .STK-MED ONE Stop: 01/29/20 00:01 Fentanyl (Sublimaze) 100 mcg EPIDUR Q3H PRN PRN Reason: Pain Last Admin: 01/29/20 11:38 Dose: 100 mcg Documented by: Fentanyl/Bupivacaine HCl (Fentanyl/Bupivacaine/Ns 2 Mcg-0.125% 100 Ml) 100 ml EPIDUR ASDIRECTED PRN PRN Reason: Pain Last Admin: 01/29/20 11:40 Dose: 100 ml Documented by: Oxytocin/Lactated Ringer's (Pitocin In Lr 10 Units/1,000 Ml) 10 unit in 1,000 mls @ 12 mls/hr IV TITRATE RAN; Protocol Last Admin: 01/29/20 18:59 Dose: 10 munits/min, 60 mls/hr Documented by: Oxytocin/Lactated Ringer's (Pitocin In Lr 10 Units/1,000 Ml) 10 unit in 1,000 mls @ 500 mls/hr IV .CONTINUOUS RAN Lactated Ringer's (Ringers, Lactated) 1,000 mls @ 100 mls/hr IV ASDIRECTED [facility] Last Admin: 01/29/20 14:59 Dose: 100 mls/hr Documented by: Lidocaine HCl (Xylocaine 1%) Confirm Administered Dose 50 ml .ROUTE .STK-MED ONE Stop: 01/29/20 23:00 Last Admin: 01/29/20 23:00 Dose: 50 ml Documented by: Misoprostol (Cytotec) 50 mcg VAG ONETIME ONE Stop: 01/28/20 20:01 Misoprostol (Cytotec) 50 mcg VAG ONETIME ONE Stop: 01/28/20 20:01 Last Admin: 01/28/20 19:54 Dose: 50 mcg Documented by: Misoprostol (Cytotec) 50 mcg VAG Q4HR [facility] Stop: 01/29/20 01:01 Last Admin: 01/29/20 00:10 Dose: 50 mcg Documented by: Misoprostol (Cytotec) 50 mcg VAG Q4H [facility] Stop: 01/29/20 04:01 Last Admin: 01/29/20 04:18 Dose: Not Given Documented by: Nalbuphine HCl (Nubain) 10 mg IVPUSH Q2H PRN PRN Reason: Pain Last Admin: 01/29/20 10:19 Dose: 10 mg Documented by: Ondansetron HCl (Zofran) 4 mg IVPUSH Q4H PRN PRN Reason: Nausea/Vomiting Sodium Chloride (Saline Flush) 10 ml FLUSH ASDIRECTED PRN PRN Reason: Keep Vein Open
--- NOTE | 2020-01-31 12:27 | PCM48HPAN ---
Post Anesthesia Note - EVALUATION WITHIN 48HRS OF ANESTHETIC Vital Signs in Normal Range: Yes Patient Participated in Evaluation: Yes Respiratory Function Stable: Yes Airway Patent: Yes Cardiovascular Function Stable: Yes Hydration Status Stable: Yes Pain Control Satisfactory: Yes Nausea and Vomiting Control Satisfactory: Yes Mental Status Recovered: Yes Vital Signs: Last Vital Signs Temp 36.9 C 01/31/20 09:19 Pulse 70 01/31/20 09:19 Resp 16 01/31/20 09:19 BP 110/65 01/31/20 09:19 Pulse Ox 99 01/31/20 09:19
== END 2020-01-31 14:00 | disposition home or self-care (01) | DRG 560 ==
LOC: JD.OB 19:00 → OBSVTOIN 01-29 22:54 → JD.OB 01-29 22:55
PROVIDERS: ADMIT Obstetrics & Gynecology; ATTEND Obstetrics & Gynecology
PROC: 10D07Z6 Extraction of Products of Conception, Vacuum, Via Natural or Artificial Opening (ICD-10-PCS; principal; 2020-01-29)
PROC: 10907ZC Drainage of Amniotic Fluid, Therapeutic from Products of Conception, Via Natural or Artificial Opening (ICD-10-PCS; 2020-01-29)
PROC: 0KQM0ZZ Repair Perineum Muscle, Open Approach (ICD-10-PCS; 2020-01-29)
PROC: 3E0R3BZ Introduction of Anesthetic Agent into Spinal Canal, Percutaneous Approach (ICD-10-PCS; 2020-01-29)
PROC: 3E0P7VZ Introduction of Hormone into Female Reproductive, Via Natural or Artificial Opening (ICD-10-PCS; 2020-01-29)
DX: O70.1 Second degree perineal laceration during delivery (principal); Z3A.39 39 weeks gestation of pregnancy; Z37.0 Single live birth; Z11.59 Encounter for screening for other viral diseases
CPT/HCPCS: 01967; 36415; 51702; 59025; 59409; 85025; 86592; 86850; 86900; 86901; A9270-GY; J2001; J2300; J2590; J3010; J3490; J7120; U0002

== ENCOUNTER 2021-09-08 18:38 | Inpatient (IN) | payer BC ==
[~2021-09-08 18:38] MED LIST: Bupivacaine 0.25% 10 ML SDV ONE
[2021-09-08] MEDS ORDERED: Ondansetron 4 MG/2 ML SDV IVPUSH PRN (19:30)
[2021-09-08] MEDS ORDERED: Ampicillin 2 GM in Sodium Chloride 0.9% 100 ML IV ONE (19:30)
[2021-09-08] MEDS ORDERED: Nalbuphine 10 MG/1 ML Vial IVPUSH PRN (19:30)
[2021-09-08] MEDS ORDERED: Sodium Chloride 0.9% 10 ML Syringe FLUSH PRN (19:30)
[2021-09-08] MEDS ORDERED: Oxytocin/Lactated Ringers 10 UNIT/1,000 ML BAG IV SCH ×2 (19:30)
[2021-09-08] MEDS: Lactated Ringers 1,000 ML IV SCH ×2 (19:56→23:35)
[2021-09-08] MEDS ORDERED: Sodium Chloride 0.9% 10 ML Syringe FLUSH SCH (21:00)
[2021-09-08] MEDS ORDERED: ePHEDrine 50 MG/ML SDV IVPUSH PRN (21:33)
[2021-09-08] MEDS ORDERED: diphenhydrAMINE 50 MG/ML SDV IVPUSH PRN (21:33)
[2021-09-08] MEDS ORDERED: Bupivacaine/fentaNYL/NS 100 ML Bag EPIDUR PRN (21:33)
[2021-09-08] MEDS ORDERED: fentaNYL 100 MCG/2 ML SDV EPIDUR PRN (21:33)
[2021-09-08] MEDS: Ampicillin 1 GM in Sodium Chloride 0.9% 100 ML IV SCH (23:35)
[2021-09-09] MEDS ORDERED: Witch Hazel Medicated Pads 40/Jar TOP PRN (03:55)
[2021-09-09] MEDS ORDERED: Docusate Sodium 100 MG Cap PO PRN (03:55)
[2021-09-09] MEDS ORDERED: Hydrocortisone Acetate 25 MG Supp RECTAL PRN (03:55)
[2021-09-09] MEDS ORDERED: Benzocaine/Menthol 20%-0.5% Spray 78 GM Cannister TOP PRN (03:55)
[2021-09-09] MEDS ORDERED: Acetaminophen 325 MG Tab PO PRN (03:55)
[2021-09-09] MEDS ORDERED: Magnesium Hydroxide 400 MG/5 ML Susp 30 ML Cup PO PRN (03:55)
[2021-09-09] MEDS ORDERED: Oxytocin/Lactated Ringers 10 UNIT/1,000 ML BAG IV SCH (03:55)
[2021-09-09] MEDS: Ibuprofen 600 MG Tab PO PRN ×2 (05:13→17:29)
[2021-09-09] MEDS: Ampicillin 1 GM in Sodium Chloride 0.9% 100 ML IV SCH (05:50)
[2021-09-09] MEDS: Prenatal Multivitamin with Calcium/Folic Acid/Iron Tab PO SCH (14:12)
[2021-09-10] MEDS: Ibuprofen 600 MG Tab PO PRN (03:38)
[2021-09-10] MEDS: Prenatal Multivitamin with Calcium/Folic Acid/Iron Tab PO SCH (19:13)
== END 2021-09-10 21:00 | disposition home or self-care (01) | DRG 560 ==
LOC: JD.OBCHECK 18:38 → JD.OB 18:47 → OBSVTOIN 19:47 → JD.OBCHECK 19:47 → JD.OB 09-09 02:20
PROVIDERS: ADMIT Obstetrics & Gynecology; ATTEND Obstetrics & Gynecology
PROC: 10E0XZZ Delivery of Products of Conception, External Approach (ICD-10-PCS; principal; 2021-09-09)
PROC: 10907ZC Drainage of Amniotic Fluid, Therapeutic from Products of Conception, Via Natural or Artificial Opening (ICD-10-PCS; 2021-09-09)
PROC: 3E0R3BZ Introduction of Anesthetic Agent into Spinal Canal, Percutaneous Approach (ICD-10-PCS; 2021-09-09)
PROC: 0KQM0ZZ Repair Perineum Muscle, Open Approach (ICD-10-PCS; 2021-09-09)
DX: O99.824 Streptococcus B carrier state complicating childbirth (principal); Z3A.39 39 weeks gestation of pregnancy; Z37.0 Single live birth; O70.1 Second degree perineal laceration during delivery; O69.81X0 Labor and delivery complicated by cord around neck, without compression, not applicable or unspecified; Z20.822 Contact with and (suspected) exposure to COVID-19
CPT/HCPCS: 01967; 36415; 51702; 59025; 59409; 80053; 82570; 83615; 84156; 85025; 86850; 86900; 86901; A9270-GY; J0290; J3010; J3490; J7120; U0002